=== PATIENT | female | born 1970 | race Caucasian/White ===

== ENCOUNTER → 2019-09-02 | Outpatient (CLI) | payer BC ==
[~2019-09-02] MED LIST: PROZAC 20MG20 MG PO
== END ==
LOC: ZCOL.LAB 15:45
DX: Z01.812 Encounter for preprocedural laboratory examination (principal); Z86.14 Personal history of Methicillin resistant Staphylococcus aureus infection

== ENCOUNTER → 2022-07-15 | Outpatient (CLI) | payer BC | LOC: MC.RAD 10:50 | DX: N63.10 Unspecified lump in the right breast, unspecified quadrant (principal) ==